=== PATIENT | male | born 1980 | race Two or more races ===

== ENCOUNTER 2021-11-13 01:29 | Inpatient (IN) | payer MEDICAID, OTHER ==
[~2021-11-13] VITALS: Ht 172.7 cm; Wt 76.2 kg
[2021-11-13] MEDS ORDERED: NITROGLYCERIN 0.4MG TABLET SL SL PRN ×2 (01:45→07:15)
[2021-11-13] MEDS ORDERED: SODIUM CHLORIDE 0.9% 1,000 ML IV ONE (02:00)
[2021-11-13] MEDS ORDERED: CEFTRIAXONE 1 G PREMIX 50 ML IV ONE (02:15)
[2021-11-13] MEDS ORDERED: DOXYCYCLINE HYCLATE 100 MG/VIAL IV ONE (02:15)
[2021-11-13] MEDS ORDERED: MIDAZOLAM HCL 2 MG/2 ML VIAL ONE (02:18)
[2021-11-13] MEDS ORDERED: FENTANYL CITRATE/PF 50MCG/ML 2ML VIAL ONE (02:18)
[2021-11-13] MEDS ORDERED: LIDOCAINE HCL 1% 20ML VIAL (Pyxis) INJ ONE (02:18)
[2021-11-13] MEDS ORDERED: IODIXANOL 320MG/ML 100 ML BOTTLE IV ONE (02:19)
[2021-11-13] MEDS ORDERED: IOHEXOL-300 100 ML BOTTLE ONE (02:19)
[2021-11-13] MEDS ORDERED: HEPARIN 1,000 UNITS PREMIX 0 ML IV ONE (02:19)
[2021-11-13 02:44] LABS: HEMATOCRIT. 33.3 % (42.0-52.0); HEMOGLOBIN. 10.9 g/dL (14.0-18.0); MEAN CORPUSCULAR HEMOGLOBIN 24.3 pg (28.0-32.0); MEAN CORPUSCULAR VOLUME 74.1 fL (80.0-94.0); MEAN PLATELET VOLUME 9.6 fl (7.4-10.4); PLATELET 260 x1000/uL (130-400); RED BLOOD CELL COUNT 4.49 mill/uL (4.7-6.1); RED CELL DISTRIBUTION WIDTH 14.4 % (11.6-14.6)
[2021-11-13 02:56] LABS: CHLORIDE 95 mEq/L (98-107)
[2021-11-13 02:57] LABS: INR 1.4; PARTIAL THROMBOPLASTIN TIME 30.3 sec (23.4-31.0); PROTHROMBIN TIME 14.6 sec (9.6-11.0)
[2021-11-13] MEDS ORDERED: DOXYCYCLINE 100MG in DEXTROSE 5% WATER 100ML IV SCH (03:00)
[2021-11-13 06:53] LABS: PLATELET ESTIMATE NORMAL
[2021-11-13] MEDS ORDERED: DEXTROSE 50% WATER 50ML SYRINGE IV PRN (07:15)
[2021-11-13] MEDS ORDERED: ACETAMINOPHEN 325MG TABLET PO PRN (07:15)
[2021-11-13] MEDS ORDERED: ONDANSETRON HCL 4MG/2ML INJ IV PRN (07:15)
[2021-11-13] MEDS ORDERED: IPRATROPIUM/ALBUTEROL 0.5-3(2.5)MG/3ML NEB NEB PRN (07:15)
[2021-11-13] MEDS ORDERED: CLONIDINE 0.1MG TABLET PO PRN (07:15)
[2021-11-13] MEDS ORDERED: MAGNESIUM/ALUMINUM HYDROXIDE/SIMETHICONE 30ML UDC PO PRN (07:15)
[2021-11-13] MEDS ORDERED: AZITHROMYCIN 500MG/250ML 250 ML IV SCH (08:00)
[2021-11-13] MEDS: METOPROLOL TARTRATE 25MG TABLET PO SCH ×2 (09:00→21:00)
[2021-11-13] MEDS: ASPIRIN 325MG EC TABLET PO SCH (09:52)
[2021-11-13] MEDS: FAMOTIDINE 20MG TABLET PO SCH ×2 (09:54→20:42)
[2021-11-13] MEDS: ASCORBIC ACID 500 MG TABLET PO SCH ×2 (09:55→20:41)
[2021-11-13] MEDS: GUAIFENESIN 200MG/10ML SUGAR FREE UDC PO PRN ×2 (09:55→20:41)
[2021-11-13] MEDS ORDERED: INSULIN GLARGINE UD 100 UNITS/ML SYR SUBCUT SCH (10:00)
[2021-11-13] MEDS: ZINC SULFATE 220 MG ( 50 ) CAPSULE PO SCH (10:10)
[2021-11-13] MEDS: ENOXAPARIN 40MG/0.4ML SYR SUBCUT SCH (10:15)
[2021-11-13 10:31] LABS: ETHANOL BLOOD < 10 mg/dL
[2021-11-13 10:34] LABS: TOTAL IRON BINDING CAPACITY 251 ug/dL (250-450)
[2021-11-13 10:39] LABS: T4 FREE 1.14 ng/dL (0.76-1.46)
[2021-11-13] MEDS: BLOOD SUGAR DIAGNOSTIC STRIP TEST SCH ×3 (11:30→21:11)
[2021-11-13] MEDS: INSULIN LISPRO 100 UNITS/ML SUBCUT SCH ×4 (11:30→21:32)
[2021-11-13 12:45] LABS: BG CARBOXYHEMOGLOBIN 0.1 % (0.5-1.5); BG DEOXYHEMOGLOBIN 4.2 % (0.0-5.0); BG HCO3 ACT 22.4 mmol/L (22.0-26.0); BG METHEMOGLOBIN 0.3 % (0.0-1.5); BG OXYGEN SATURATION 95.8 % (92.0-98.5); BG OXYHEMOGLOBIN 95.4 % (94.0-97.0); BG PCO2 33.5 mmHg (35.0-45.0); BG PH 7.444 (7.350-7.450); BG PO2 77.8 mmHg (75.0-100.0); BG SAMPLE SITE RIGHT RADIAL; BG TOTAL HEMOGLOBIN 12.6 g/dL (12.0-18.0); BG VENT MODE MASK - NRB
[2021-11-13] MEDS ORDERED: VANCOMYCIN 1G PREMIX 200 ML IV NR (15:00)
[2021-11-13] MEDS ORDERED: SODIUM CHLORIDE 10% FOR INH 15ML VIAL NEB INH NR (15:30)
[2021-11-13] MEDS: GUAIFENESIN 600MG ER TABLET PO SCH ×2 (15:38→21:04)
[2021-11-13] MEDS: SODIUM CHLORIDE 0.9% 1,000 ML IV SCH (15:45)
[2021-11-13] MEDS: VANCOMYCIN 1G PREMIX 200 ML IV SCH (20:42)
[2021-11-13] MEDS: IPRATROPIUM BROMIDE (0.02%) 0.5MG/2.5ML NEB HHN SCH (20:46)
[2021-11-13] MEDS ORDERED: CEFTRIAXONE 1 G PREMIX 50 ML IV SCH (21:00)
[2021-11-13 21:45] VITALS: BP 111/80
[2021-11-14] VITALS (8 sets, daily range): BP systolic 111–148; BP diastolic 69–96
[2021-11-14 01:02] LABS: CREATINE KINASE MB FRACTION 2.4 ng/mL (0.5-3.6)
[2021-11-14] MEDS: KETOROLAC 15MG/ML VIAL IV PRN ×2 (03:57→21:53)
[2021-11-14] MEDS: VANCOMYCIN 1G PREMIX 200 ML IV SCH ×2 (05:49→15:50)
[2021-11-14] MEDS: INSULIN LISPRO 100 UNITS/ML SUBCUT SCH ×7 (05:54→21:00)
[2021-11-14] MEDS: BLOOD SUGAR DIAGNOSTIC STRIP TEST SCH ×4 (05:54→21:55)
[2021-11-14 06:36] LABS: BASOPHILS % 0.5 % (0.0-2.0); EOSINOPHILS % 0.5 % (0.0-5.0); HEMATOCRIT. 35.6 % (42.0-52.0); HEMOGLOBIN. 11.6 g/dL (14.0-18.0); LYMPHOCYTES % 8.7 % (20.0-50.0); MEAN CORPUSCULAR HEMOGLOBIN 24.2 pg (28.0-32.0); MEAN CORPUSCULAR VOLUME 74.5 fL (80.0-94.0); MEAN PLATELET VOLUME 8.9 fl (7.4-10.4); MONOCYTES % 4.7 % (2.0-8.0); NEUTROPHILS % 85.6 % (40.0-76.0); PLATELET 262 x1000/uL (130-400); RED BLOOD CELL COUNT 4.78 mill/uL (4.7-6.1); RED CELL DISTRIBUTION WIDTH 14.5 % (11.6-14.6)
[2021-11-14 07:00] LABS: CHLORIDE 100 mEq/L (98-107)
[2021-11-14 07:08] LABS: PHOSPHORUS 2.5 mg/dL (2.5-4.9)
[2021-11-14 07:09] LABS: LDL CHOLESTEROL 65 mg/dL (5-100)
[2021-11-14 07:12] LABS: HDL CHOLESTEROL 12 mg/dL (40-59)
[2021-11-14] MEDS: IPRATROPIUM BROMIDE (0.02%) 0.5MG/2.5ML NEB HHN SCH ×4 (07:57→20:17)
[2021-11-14] MEDS: ASCORBIC ACID 500 MG TABLET PO SCH ×2 (09:10→21:52)
[2021-11-14] MEDS: ZINC SULFATE 220 MG ( 50 ) CAPSULE PO SCH (09:10)
[2021-11-14] MEDS: ASPIRIN 325MG EC TABLET PO SCH (09:10)
[2021-11-14] MEDS: GUAIFENESIN 600MG ER TABLET PO SCH ×2 (09:10→21:51)
[2021-11-14] MEDS: METOPROLOL TARTRATE 25MG TABLET PO SCH ×2 (09:11→21:52)
[2021-11-14] MEDS: ENOXAPARIN 40MG/0.4ML SYR SUBCUT SCH (09:11)
[2021-11-14] MEDS: FAMOTIDINE 20MG TABLET PO SCH ×2 (09:43→21:51)
[2021-11-14] MEDS: AZITHROMYCIN 500 MG in DEXT 5% WATER 250 ML IV SCH (11:15)
[2021-11-14] MEDS ORDERED: INFLUENZA VACCINE 05/PF 0.5 ML SYRINGE IM ONE (12:00)
[2021-11-14] MEDS: SODIUM CHLORIDE 0.9% 1,000 ML IV SCH (12:05)
[2021-11-14] MEDS: ACETAMINOPHEN 325MG TABLET PO PRN (12:27)
[2021-11-14] MEDS: INSULIN GLARGINE UD 100 UNITS/ML SYR SUBCUT SCH (12:44)
[2021-11-14] MEDS ORDERED: CEFTRIAXONE 1,000 MG in DEXTROSE 5% WATER 50 ML IV SCH (21:00)
[2021-11-15] VITALS (7 sets, daily range): BP systolic 109–127; BP diastolic 70–87
[2021-11-15] MEDS: VANCOMYCIN 1G PREMIX 200 ML IV SCH ×2 (01:28→08:46)
[2021-11-15] MEDS: GUAIFENESIN 200MG/10ML SUGAR FREE UDC PO PRN ×3 (01:39→18:21)
[2021-11-15] MEDS: IPRATROPIUM BROMIDE (0.02%) 0.5MG/2.5ML NEB HHN SCH ×4 (03:09→20:09)
[2021-11-15] MEDS: INSULIN LISPRO 100 UNITS/ML SUBCUT SCH ×7 (06:51→21:08)
[2021-11-15] MEDS: BLOOD SUGAR DIAGNOSTIC STRIP TEST SCH ×4 (06:52→21:09)
[2021-11-15 08:37] LABS: CHLORIDE 102 mEq/L (98-107)
[2021-11-15] MEDS: ASCORBIC ACID 500 MG TABLET PO SCH ×2 (08:47→21:03)
[2021-11-15] MEDS: ASPIRIN 325MG EC TABLET PO SCH (08:47)
[2021-11-15] MEDS: METOPROLOL TARTRATE 25MG TABLET PO SCH ×2 (08:47→21:00)
[2021-11-15] MEDS: SODIUM CHLORIDE 0.9% 1,000 ML IV SCH (08:47)
[2021-11-15] MEDS: FAMOTIDINE 20MG TABLET PO SCH ×2 (08:47→21:03)
[2021-11-15] MEDS: GUAIFENESIN 600MG ER TABLET PO SCH ×2 (08:47→21:03)
[2021-11-15] MEDS: ZINC SULFATE 220 MG ( 50 ) CAPSULE PO SCH (08:47)
[2021-11-15] MEDS: ENOXAPARIN 40MG/0.4ML SYR SUBCUT SCH (08:49)
[2021-11-15] MEDS: INSULIN GLARGINE UD 100 UNITS/ML SYR SUBCUT SCH (09:54)
[2021-11-15] MEDS ORDERED: IOHEXOL-350 100 ML BOTTLE ONE (11:43)
[2021-11-15] MEDS ORDERED: VANCOMYCIN 1250MG in DEXTROSE 5% WATER 250ML IV SCH (14:00)
[2021-11-15] MEDS: CEFTRIAXONE 2 G in DEXTROSE 5% WATER 50 ML IV SCH (14:16)
[2021-11-15] MEDS: AZITHROMYCIN 500 MG in DEXT 5% WATER 250 ML IV SCH (15:21)
[2021-11-15] MEDS: KETOROLAC 15MG/ML VIAL IV PRN (18:55)
[2021-11-16] VITALS: BP 120/85
[2021-11-16] MEDS: ZOLPIDEM TARTRATE 5MG TABLET PO PRN (00:35)
[2021-11-16] MEDS: GUAIFENESIN 200MG/10ML SUGAR FREE UDC PO PRN ×4 (00:38→23:52)
[2021-11-16] MEDS: SODIUM CHLORIDE 0.9% 1,000 ML IV SCH ×2 (03:30→23:30)
[2021-11-16] MEDS: ACETAMINOPHEN 325MG TABLET PO PRN ×3 (03:33→16:52)
[2021-11-16 04:00] VITALS: BP 118/82
[2021-11-16] MEDS: INSULIN LISPRO 100 UNITS/ML SUBCUT SCH ×5 (06:33→23:57)
[2021-11-16] MEDS: BLOOD SUGAR DIAGNOSTIC STRIP TEST SCH ×4 (06:45→21:00)
[2021-11-16 08:00] VITALS: BP 147/90
[2021-11-16] MEDS: ASPIRIN 325MG EC TABLET PO SCH (08:32)
[2021-11-16] MEDS: ASCORBIC ACID 500 MG TABLET PO SCH ×2 (08:32→20:40)
[2021-11-16] MEDS: GUAIFENESIN 600MG ER TABLET PO SCH ×2 (08:32→20:41)
[2021-11-16] MEDS: FAMOTIDINE 20MG TABLET PO SCH ×2 (08:32→20:41)
[2021-11-16] MEDS: ZINC SULFATE 220 MG ( 50 ) CAPSULE PO SCH (08:33)
[2021-11-16] MEDS: ENOXAPARIN 40MG/0.4ML SYR SUBCUT SCH (08:33)
[2021-11-16] MEDS: METOPROLOL TARTRATE 25MG TABLET PO SCH ×2 (08:33→20:43)
[2021-11-16] MEDS: IPRATROPIUM BROMIDE (0.02%) 0.5MG/2.5ML NEB HHN SCH ×2 (09:32→14:12)
[2021-11-16] MEDS: INSULIN GLARGINE UD 100 UNITS/ML SYR SUBCUT SCH (10:13)
[2021-11-16] MEDS: AZITHROMYCIN 500 MG in DEXT 5% WATER 250 ML IV SCH (11:28)
[2021-11-16 12:00] VITALS: BP 116/85
[2021-11-16 16:00] VITALS: BP 127/88
[2021-11-16 20:00] VITALS: BP 126/88
[2021-11-16] MEDS: DOCUSATE SODIUM 100MG CAPSULE PO PRN (20:41)
[2021-11-16] MEDS: KETOROLAC 15MG/ML VIAL IV PRN (20:44)
[2021-11-17 00:05] VITALS: BP 122/85
[2021-11-17 04:00] VITALS: BP 142/89
[2021-11-17] MEDS: INSULIN LISPRO 100 UNITS/ML SUBCUT SCH ×7 (06:39→22:07)
[2021-11-17] MEDS: BLOOD SUGAR DIAGNOSTIC STRIP TEST SCH ×4 (06:45→21:00)
[2021-11-17 07:03] LABS: CHLORIDE 105 mEq/L (98-107)
[2021-11-17 07:58] LABS: BASOPHILS % 0.6 % (0.0-2.0); EOSINOPHILS % 1.7 % (0.0-5.0); HEMATOCRIT. 33.4 % (42.0-52.0); HEMOGLOBIN. 11.2 g/dL (14.0-18.0); LYMPHOCYTES % 24.2 % (20.0-50.0); MEAN CORPUSCULAR HEMOGLOBIN 24.7 pg (28.0-32.0); MEAN CORPUSCULAR VOLUME 73.3 fL (80.0-94.0); MEAN PLATELET VOLUME 9.1 fl (7.4-10.4); MONOCYTES % 10.4 % (2.0-8.0); NEUTROPHILS % 63.1 % (40.0-76.0); PLATELET 328 x1000/uL (130-400); RED BLOOD CELL COUNT 4.55 mill/uL (4.7-6.1); RED CELL DISTRIBUTION WIDTH 14.4 % (11.6-14.6)
[2021-11-17 08:00] VITALS: BP 123/81
[2021-11-17 08:12] LABS: HIV SCREEN 4G Non Reactive (Non Reactive)
[2021-11-17] MEDS: ENOXAPARIN 40MG/0.4ML SYR SUBCUT SCH (08:39)
[2021-11-17] MEDS: DOCUSATE SODIUM 100MG CAPSULE PO PRN (08:39)
[2021-11-17] MEDS: ASPIRIN 325MG EC TABLET PO SCH (08:39)
[2021-11-17] MEDS: FAMOTIDINE 20MG TABLET PO SCH ×2 (08:40→21:11)
[2021-11-17] MEDS: ZINC SULFATE 220 MG ( 50 ) CAPSULE PO SCH (08:40)
[2021-11-17] MEDS: GUAIFENESIN 600MG ER TABLET PO SCH ×2 (08:40→21:11)
[2021-11-17] MEDS: ASCORBIC ACID 500 MG TABLET PO SCH ×2 (08:40→21:11)
[2021-11-17] MEDS: METOPROLOL TARTRATE 25MG TABLET PO SCH ×2 (08:41→21:11)
[2021-11-17] MEDS: IPRATROPIUM BROMIDE (0.02%) 0.5MG/2.5ML NEB HHN SCH ×3 (09:05→18:00)
[2021-11-17] MEDS: GUAIFENESIN 200MG/10ML SUGAR FREE UDC PO PRN (10:37)
[2021-11-17] MEDS: INSULIN GLARGINE UD 100 UNITS/ML SYR SUBCUT SCH (10:39)
[2021-11-17] MEDS: ACETAMINOPHEN 325MG TABLET PO PRN (10:43)
[2021-11-17] MEDS: AZITHROMYCIN 500 MG in DEXT 5% WATER 250 ML IV SCH (11:31)
[2021-11-17 12:07] VITALS: BP 116/80
[2021-11-17 16:14] VITALS: BP 115/80
[2021-11-17] MEDS: CEFTRIAXONE 2 G in DEXTROSE 5% WATER 50 ML IV SCH ×2 (16:58→17:06)
[2021-11-17 20:00] VITALS: BP 125/85
[2021-11-17] MEDS: ZOLPIDEM TARTRATE 5MG TABLET PO PRN (21:11)
[2021-11-17] MEDS: KETOROLAC 15MG/ML VIAL IV PRN (21:57)
[2021-11-17] MEDS: SODIUM CHLORIDE 0.9% 1,000 ML IV SCH (22:05)
[2021-11-18] VITALS: BP 139/87
[2021-11-18] MEDS: GUAIFENESIN 200MG/10ML SUGAR FREE UDC PO PRN (02:46)
[2021-11-18 04:00] VITALS: BP 140/91
[2021-11-18] MEDS: KETOROLAC 15MG/ML VIAL IV PRN (06:49)
[2021-11-18] MEDS: INSULIN LISPRO 100 UNITS/ML SUBCUT SCH ×7 (07:10→20:33)
[2021-11-18] MEDS: BLOOD SUGAR DIAGNOSTIC STRIP TEST SCH ×4 (07:10→20:25)
[2021-11-18 08:00] VITALS: BP 92/54
[2021-11-18] MEDS: GUAIFENESIN 600MG ER TABLET PO SCH ×2 (08:35→20:21)
[2021-11-18] MEDS: FAMOTIDINE 20MG TABLET PO SCH ×2 (08:35→20:20)
[2021-11-18] MEDS: ASPIRIN 325MG EC TABLET PO SCH (08:35)
[2021-11-18] MEDS: ZINC SULFATE 220 MG ( 50 ) CAPSULE PO SCH (08:35)
[2021-11-18] MEDS: ASCORBIC ACID 500 MG TABLET PO SCH ×2 (08:35→20:20)
[2021-11-18] MEDS: ENOXAPARIN 40MG/0.4ML SYR SUBCUT SCH (08:35)
[2021-11-18] MEDS: METOPROLOL TARTRATE 25MG TABLET PO SCH ×2 (08:39→20:20)
[2021-11-18] MEDS: INSULIN GLARGINE UD 100 UNITS/ML SYR SUBCUT SCH (10:05)
[2021-11-18] MEDS ORDERED: AZITHROMYCIN 500 MG TABLET PO SCH (11:00)
[2021-11-18 12:00] VITALS: BP 148/95
[2021-11-18] MEDS: IPRATROPIUM BROMIDE (0.02%) 0.5MG/2.5ML NEB HHN SCH ×2 (13:46→21:34)
[2021-11-18] MEDS: SODIUM CHLORIDE 0.9% 1,000 ML IV SCH (15:30)
[2021-11-18 16:00] VITALS: BP 112/65
[2021-11-18] MEDS: CEFTRIAXONE 2 G in DEXTROSE 5% WATER 50 ML IV SCH (16:14)
[2021-11-18 20:00] VITALS: BP 122/66
[2021-11-18] MEDS: ACETAMINOPHEN 325MG TABLET PO PRN (21:49)
[2021-11-19] VITALS: BP 132/78
[2021-11-19] MEDS: IPRATROPIUM BROMIDE (0.02%) 0.5MG/2.5ML NEB HHN SCH (02:02)
[2021-11-19] MEDS: ACETAMINOPHEN 325MG TABLET PO PRN ×2 (03:33→09:26)
[2021-11-19 04:00] VITALS: BP 130/78
[2021-11-19] MEDS: BLOOD SUGAR DIAGNOSTIC STRIP TEST SCH (07:37)
[2021-11-19 08:00] VITALS: BP 118/80
[2021-11-19] MEDS: ZINC SULFATE 220 MG ( 50 ) CAPSULE PO SCH (08:19)
[2021-11-19] MEDS: ASCORBIC ACID 500 MG TABLET PO SCH (08:19)
[2021-11-19] MEDS: GUAIFENESIN 600MG ER TABLET PO SCH (08:20)
[2021-11-19] MEDS: ENOXAPARIN 40MG/0.4ML SYR SUBCUT SCH (08:20)
[2021-11-19] MEDS: METOPROLOL TARTRATE 25MG TABLET PO SCH (08:20)
[2021-11-19] MEDS: FAMOTIDINE 20MG TABLET PO SCH (08:20)
[2021-11-19] MEDS: INSULIN LISPRO 100 UNITS/ML SUBCUT SCH ×2 (08:23→08:24)
[2021-11-19] MEDS: ASPIRIN 325MG EC TABLET PO SCH (09:27)
== END 2021-11-19 09:55 | disposition left against medical advice (07) | DRG 720 ==
LOC: ER 01:42 → MICUSO 03:33 → 5WST 21:01
PROVIDERS: ADMIT Internal Medicine; ATTEND Internal Medicine
DX: A40.3 Sepsis due to Streptococcus pneumoniae (principal); J96.01 Acute respiratory failure with hypoxia; R65.20 Severe sepsis without septic shock; E43 Unspecified severe protein-calorie malnutrition; J13 Pneumonia due to Streptococcus pneumoniae; D63.8 Anemia in other chronic diseases classified elsewhere; E87.1 Hypo-osmolality and hyponatremia; K76.0 Fatty (change of) liver, not elsewhere classified; E11.65 Type 2 diabetes mellitus with hyperglycemia; E87.5 Hyperkalemia; R94.31 Abnormal electrocardiogram [ECG] [EKG]; Z53.21 Procedure and treatment not carried out due to patient leaving prior to being seen by health care provider; F17.210 Nicotine dependence, cigarettes, uncomplicated; Z20.822 Contact with and (suspected) exposure to COVID-19; Z68.25 Body mass index [BMI] 25.0-25.9, adult; Z23 Encounter for immunization
CPT/HCPCS: 36415; 36600; 71045; 71275; 80048; 80053; 80061; 80202; 80320; 82375; 82550; 82553; 82607; 82728; 82746; 82805; 82962; 83036; 83540; 83550; 83605; 83615; 83735; 83880; 83930; 84100; 84145; 84439; 84443; 84484; 85025; 87077; 87186; 87389; 87426; 90686; 93005; 93306; 93970; 94640; 97161; 97165; 99291; J0456; J0696; J1644; J1650; J1815; J1885; J2250; J3010; J3370; J3490; J7030; J7040; J7060; J7131; Q9967; G0480